=== PATIENT | male | born 1985 | race Caucasian/White ===

== ENCOUNTER 2019-04-26 14:25 | Emergency (ER) | payer BC ==
[2019-04-26 14:58] VITALS: BP 124/79
--- NOTE | 2019-04-26 15:12 | UC ---
Minor Trauma HPI - HPI Summary HPI Summary: triped and fell landing on right side of chest and abdomen---c/o 10/10 pain in right lower ribs - History of Current Complaint Chief Complaint: UCTrauma Stated Complaint: RIB INJURY Time Seen by Provider: 04/26/19 15:08 Hx Obtained From: Patient Onset/Duration: Sudden Onset, Lasting Hours Onset Of Pain: Immediate Pain Intensity: 10 Pain Scale Used: 0-10 Numeric Mechanism Of Injury: Fall From A Standing Position Aggravating Factor(s): Movement Alleviating Factor(s): Nothing Related History: Positive: Anticoagulants - Allergies/Home Medications Allergies/Adverse Reactions: Allergies Allergy/AdvReac Type Severity Reaction Status Date / Time No Known Allergies Allergy Verified 04/26/19 14:58 Home Medications: Home Medications Acetaminophen TAB* [Tylenol TAB*] 1,000 mg PO Q6H PRN 04/26/19 [History Confirmed 04/26/19] DOXYcycline CAP(*) [DOXYcycline 100MG CAP(*)] 100 mg PO DAILY 04/26/19 [History Confirmed 04/26/19] PMH/Surg Hx/FS Hx/Imm Hx Previously Healthy: No Cardiovascular History: Atrial Fibrillation - Surgical History Surgical History: Yes Surgery Procedure, Year, and Place: cardiac ablasion, cardioversion x3. VASECTOMY - Family History Known Family History: Positive: Other - & child have respiratory illnesses and pink eye - Social History Occupation: Employed Full-time Lives: With Family Alcohol Use: None Alcohol Amount: 2 drinks per week Substance Use Type: None Substance Use Comment - Amount & Last Used: hydrocodone Smoking Status (MU): Former Smoker Type: Cigarettes Amount Used/How Often: 4 cigarettes/week Length of Time of Smoking/Using Tobacco: 10 years Have You Smoked in the Last Year: Yes When Did the Patient Quit Smoking/Using Tobacco: 04/23/16 Review of Systems All Other Systems Reviewed And Are Negative: Yes Constitutional: Positive: Negative Skin: Positive: Negative Eyes: Positive: Negative ENT: Positive: Negative Respiratory: Positive: Negative Cardiovascular: Positive: Negative Gastrointestinal: Positive: Abdominal Pain Genitourinary: Positive: Negative Motor: Positive: Negative Neurovascular: Positive: Negative Musculoskeletal: Positive: Arthralgia - right lower ribs Neurological: Positive: Negative Psychological: Positive: Negative Is Patient Immunocompromised?: No Physical Exam Triage Information Reviewed: Yes Appearance: Well-Appearing, Pain Distress, Obese Vital Signs: Initial Vital Signs Temp 98.0 F 04/26/19 14:54 Pulse 82 04/26/19 14:54 Resp 16 04/26/19 14:54 BP 124/79 04/26/19 14:54 Pulse Ox 98 04/26/19 14:54 Vital Signs Reviewed: Yes Eye Exam: Normal Eyes: Positive: Conjunctiva Clear ENT Exam: Normal ENT: Positive: Normal ENT inspection, Hearing grossly normal. Negative: Trismus , Muffled voice, Hoarse voice Dental Exam: Normal Neck exam: Normal Neck: Positive: Supple, Nontender, No Lymphadenopathy Respiratory Exam: Normal Respiratory: Positive: Lungs clear, Normal breath sounds, No respiratory distress, No accessory muscle use. Negative: Chest non-tender Cardiovascular Exam: Normal Cardiovascular: Positive: RRR, No Murmur, Pulses Normal, Brisk Capillary Refill Abdominal Exam: Other Abdomen Description: Positive: Hepatomegaly, Other: - ruq tenderness. Negative : CVA Tenderness (R), CVA Tenderness (L) Bowel Sounds: Positive: Present Musculoskeletal Exam: Normal Musculoskeletal: Positive: Strength Intact, ROM Intact, No Edema Neurological Exam: Normal Neurological: Positive: Alert, Muscle Tone Normal Psychological Exam: Normal Skin Exam: Normal Diagnostics - Radiology No standard instances Radiology Interpretation Completed By: Radiologist - no evidence of fx ribs or sternum Minor Trauma Course/Dx - Course Course Of Treatment: pain med---patient will go to hospital for further evaluation of ruq pain in light of being on pradaxa and pain - Differential Dx/Diagnosis Provider Diagnosis: Rib contusion, Injury of abdomen Discharge - Sign-Out/Discharge Documenting (check all that apply): Patient Departure All imaging exams completed and their final reports reviewed: No Studies - Discharge Plan Condition: Stable Disposition: HOME Patient Education Materials: Rib Contusion (ED), Liver or Spleen Laceration (DC ) Referrals: Calista Reddy MD [Primary Care Provider] - Additional Instructions: please go to emergency department for further evaluation for ruq pain after fall - Billing Disposition and Condition Condition: STABLE Disposition: Home
[2019-04-26] MEDS ORDERED: HYDROcodone/ACETAMIN 5-325 MG* 1 TAB PO ONE (15:30)
== END 2019-04-26 15:48 | disposition home or self-care (01) ==
LOC: UCEAST 14:25
DX: S20.219A Contusion of unspecified front wall of thorax, initial encounter (principal); S39.91XA Unspecified injury of abdomen, initial encounter; W01.0XXA Fall on same level from slipping, tripping and stumbling without subsequent striking against object, initial encounter; Y92.9 Unspecified place or not applicable; I48.91 Unspecified atrial fibrillation; Z87.891 Personal history of nicotine dependence
CPT/HCPCS: 71120; 99212; G0463

== ENCOUNTER 2019-11-20 09:19 | Emergency (ER) | payer BC ==
--- NOTE | 2019-11-20 10:32 | UC ---
Lower Extremity/Ankle HPI - HPI Summary HPI Summary: 34 yo male presents with RIGHT 5th toe injury. He tells me that last night he dropped a large ceramic bowl on his right 5th toe. Had immediate pain. Since that time has had swelling, bruising, and pain. He has been resting, icing, and elevating. He has taken ibuprofen with good relief, but states trying to sleep last night was difficult due to pain. - History of Current Complaint Stated Complaint: TOE PAIN Time Seen by Provider: 11/20/19 10:32 Hx Obtained From: Patient Onset/Duration: Sudden Onset Severity Initially: Severe Severity Currently: Moderate Pain Intensity: 8 Pain Scale Used: 0-10 Numeric Aggravating Factor(s): Standing, Ambulation Alleviating Factor(s): Rest, Elevation Able to Bear Weight: Yes - Allergies/Home Medications Allergies/Adverse Reactions: Allergies Allergy/AdvReac Type Severity Reaction Status Date / Time No Known Allergies Allergy Verified 11/20/19 10:35 Home Medications: Home Medications Metoprolol Succinate XL TAB* [Toprol XL TAB*] 100 mg PO BID 12/01/12 [History Confirmed 11/20/19] dilTIAZem HCl [Taztia Xt] 360 mg PO DAILY 12/01/12 [History Confirmed 11/20/19] DOXYcycline CAP(*) [DOXYcycline 100MG CAP(*)] 100 mg PO DAILY 04/26/19 [History Confirmed 11/20/19] HYDROcodone/ACETAMIN 5-325 MG* [[place] 5-325 TAB*] 1 tab PO BID PRN #8 tab MDD 2 11/20/19 [Rx] PMH/Surg Hx/FS Hx/Imm Hx Cardiovascular History: Hypertension, Atrial Fibrillation - Surgical History Surgical History: Yes Surgery Procedure, Year, and Place: cardiac ablasion, cardioversion x3. VASECTOMY - Family History Known Family History: Positive: Other - & child have respiratory illnesses and pink eye - Social History Occupation: Employed Full-time Alcohol Use: Occasionally Alcohol Amount: 2 drinks per week Substance Use Type: None Substance Use Comment - Amount & Last Used: hydrocodone Smoking Status (MU): Former Smoker Type: Cigarettes Amount Used/How Often: 4 cigarettes/week Length of Time of Smoking/Using Tobacco: 10 years Have You Smoked in the Last Year: Yes When Did the Patient Quit Smoking/Using Tobacco: 04/23/16 Review of Systems All Other Systems Reviewed And Are Negative: No Constitutional: Positive: Negative Skin: Positive: Bruising Respiratory: Positive: Negative Cardiovascular: Positive: Negative Neurovascular: Positive: Negative Musculoskeletal: Positive: Other: - Left 5th toe pain Neurological/Mental Status: Positive: Negative Psychological: Positive: Negative Physical Exam - Summary Physical Exam Summary: GENERAL: NAD. WDWN. No pain distress. SKIN: No rashes, sores, lesions, or open wounds. CHEST: No accessory muscle use. Breathing comfortably and in no distress. CV: Pulses intact PT and DP. Cap refill <2seconds MSK: LEFT 5th toe: Moderate edema and ecchymosis. Mild TTP about toe. No open wounds. FROM with pain. NTTP MT NEURO: Alert. Sensations intact and symmetric B/L LEs PSYCH: Age appropriate behavior. Triage Information Reviewed: Yes Vital Signs: Vital Signs: Temp Pulse Resp BP Pulse Ox 97.6 F 72 18 125/82 99 11/20/19 10:59 11/20/19 10:59 11/20/19 10:59 11/20/19 10:59 11/20/19 10:59 Vital Signs Reviewed: Yes Diagnostics - Radiology Toe XR Radiology Interpretation Completed By: Radiologist Summary of Radiographic Findings: REPORT AND IMPRESSION: #. 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 #. Overlying soft tissue swelling extends proximally along the lateral aspect of the foot. #. Normal articular alignment. Lower Extremity Course/Dx - Course Course Of Treatment: istop: Reference #: [id number] XR as above. Pt's toe risa taped and he was provided with a post-op shoe to use for comfort. Advised to continue tylenol/ibuprofen and will rx for a short course of norco to use for severe pain - mostly for use at bedtime. - Differential Dx/Diagnosis Provider Diagnosis: Nondisplaced fracture of lesser toe Discharge ED - Sign-Out/Discharge Documenting (check all that apply): Patient Departure All imaging exams completed and their final reports reviewed: Yes - Discharge Plan Condition: Stable Disposition: HOME Prescriptions: HYDROcodone/ACETAMIN 5-325 MG* [[place] 5-325 TAB*] 1 tab PO BID PRN #8 tab MDD 2 PRN Reason: Pain - Severe Patient Education Materials: Toe Fracture (ED) Referrals: Calista Reddy MD [Primary Care Provider] - Additional Instructions: 1) Rest, Ice, and elevate your toe to decrease pain and swelling 2) Take tylenol/ibuprofen as directed for discomfort 3) Use the risa tape as much as possible - changing daily - Billing Disposition and Condition Condition: STABLE Disposition: Home
[2019-11-20 11:02] VITALS: BP 125/82
== END 2019-11-20 11:55 | disposition home or self-care (01) ==
LOC: UCEAST 09:19
DX: S92.504A Nondisplaced unspecified fracture of right lesser toe(s), initial encounter for closed fracture (principal); I10 Essential (primary) hypertension; I48.91 Unspecified atrial fibrillation; Z87.891 Personal history of nicotine dependence; Z79.899 Other long term (current) drug therapy; W22.8XXA Striking against or struck by other objects, initial encounter; Y92.9 Unspecified place or not applicable
CPT/HCPCS: 99213; G0463